=== PATIENT | male | born 1995 | race Caucasian/White ===

== ENCOUNTER 2019-07-28 08:28 | Emergency (ER) | payer OTHER ==
--- NOTE | 2019-07-28 08:36 | ED ---
Lower Extremity - HPI Summary HPI Summary: Pt. is a 23 y.o male who presents to the ER for a right ankle injury that occurred yesterday. Pt. states he was playing basketball when he jumped up for a ball and twisted right ankle. Able to ambulate with pain. Associated sxs of bruising and swelling. Denies numbness or tingling. Sxs are mild in severity. - History of Current Complaint Chief Complaint: EDExtremityLower Stated Complaint: RT ANKLE INJ PER PT Time Seen by Provider: 07/28/19 08:34 Hx Obtained From: Patient Pain Intensity: 3 - Allergies/Home Medications Allergies/Adverse Reactions: Allergies Allergy/AdvReac Type Severity Reaction Status Date / Time No Known Allergies Allergy Verified 07/28/19 08:33 Home Medications: Home Medications Multivitamin 1 tab PO DAILY 07/28/19 [History Confirmed 07/28/19] PMH/Surg Hx/FS Hx/Imm Hx Previously Healthy: Yes Infectious Disease History: No Infectious Disease History: Denies: Traveled Outside the [place] in Last 30 Days - Family History Known Family History: Positive: Non-Contributory - Social History Occupation: Student Lives: Dormitory/Roommates Review of Systems Positive: Other - pain to right ankle Positive: Bruising Neurological: Negative Negative: Weakness, Paresthesia, Numbness All Other Systems Reviewed And Are Negative: Yes Physical Exam Triage Information Reviewed: Yes Vital Signs On Initial Exam: Initial Vitals Temp Pulse Resp BP Pulse Ox 98.2 F 53 16 134/83 97 07/28/19 08:29 07/28/19 08:29 07/28/19 08:29 07/28/19 08:29 07/28/19 08:29 Vital Signs Reviewed: Yes Appearance: Positive: Well-Appearing - Pt. sitting on bed in NAD. Skin: Positive: Warm, Dry Head/Face: Positive: Normal Head/Face Inspection Eyes: Positive: Normal, EOMI Neck: Positive: Supple Musculoskeletal: Positive: Other - Edema and pain to right lateral malleolus. Ecchymosis extending to lateral foot. Good pedal pulse. No proximal tib/fib or knee pain on palpation. Achilles tendon intact. Neurological: Positive: Normal, CN Intact II-III Diagnostics - Vital Signs Vital Signs Temp Pulse Resp BP Pulse Ox 07/28/19 08:29 98.2 F 53 16 134/83 97 - Laboratory Lab Statement: Any lab studies that have been ordered have been reviewed, and results considered in the medical decision making process. Lower Extremity Course/Dx - Course Course Of Treatment: Ankle and foot x-rays show soft tissue edema without acute findings fracture, reading per radiology. Najel wrap placed for crutches. Advised patient to ice and elevation intermittently. Ibuprofen for pain as directed. Close follow up with [facility] for reevaluation if pain persists. Patient understands and agrees with plan. - Diagnoses Differential Diagnosis/HQI/PQRI: Positive: Contusion, Dislocation, Fracture ( Closed), Sprain, Strain Provider Diagnoses: Ankle sprain Discharge ED - Sign-Out/Discharge Documenting (check all that apply): Patient Departure Patient Received Moderate/Deep Sedation with Procedure: No - Discharge Plan Condition: Good Disposition: HOME Patient Education Materials: Ankle Sprain (ED) Referrals: [facility] - Myron WOMACK [Primary Care Provider] - Additional Instructions: Follow up with [facility] for recheck if pain and swelling persist Wear splint for support Ice and elevate Ibuprofen for pain as directed Return to ER if symptoms change or worsen - Billing Disposition and Condition Condition: GOOD Disposition: Home
[2019-07-28 09:53] VITALS: BP 126/74
== END 2019-07-28 09:50 | disposition home or self-care (01) ==
LOC: ED 08:28
DX: S93.401A Sprain of unspecified ligament of right ankle, initial encounter (principal); X50.9XXA Other and unspecified overexertion or strenuous movements or postures, initial encounter; Y93.67 Activity, basketball; Y92.9 Unspecified place or not applicable
CPT/HCPCS: 99282